=== PATIENT | female | born 1990 | race Caucasian/White ===

== ENCOUNTER 2017-12-04 11:36 | Inpatient (IN) | payer OTHER ==
[2017-12-04] MEDS ORDERED: SODIUM CHLORIDE 1,000 ML IV STA (13:27)
[2017-12-04] MEDS ORDERED: FOLIC ACID INJECTION - 1 MG, THIAMINE HCL 100 MG, MULTIVIT INJECTION ADULT 10 ML in SOD... IVPB ONE (13:32)
--- NOTE | 2017-12-04 13:32 | PDOC ---
History of Present Illness - General Chief Complaint: Lightheaded Stated Complaint: DIZZINESS, ELEVATED BP,ALCOHOL Time Seen by Provider: 12/04/17 13:15 History Source: Patient - History of Present Illness Timing/Duration: other (this am) Associated Symptoms: reports: chest pain, nausea/vomiting, weakness. denies: fever/chills, headaches, shortness of breath Past History - Past Medical History Allergies/Adverse Reactions: Allergies Allergy/AdvReac Type Severity Reaction Status Date / Time No Known Allergies Allergy Verified 12/04/17 11:40 Home Medications: Ambulatory Orders NK [No Known Home Medication] 12/04/17 COPD: No Hypercholesterolemia: Yes - Suicide/Smoking/Psychosocial Hx Smoking History: Never smoked Have you smoked in the past 12 months: No Information on smoking cessation initiated: No Hx Alcohol Use: Yes Drug/Substance Use Hx: No Substance Use Type: None Review of Systems - Review of Systems Constitutional: Yes: Malaise. No: Chills, Fever Respiratory: No: Shortness of Breath Cardiac (ROS): Yes: Chest Pain ABD/GI: Yes: Diarrhea, Nausea. No: Vomiting, Abdominal cramping *Physical Exam - Vital Signs Last Vital Signs Temp Pulse Resp BP Pulse Ox 98.7 F 110 H 18 138/87 100 12/04/17 11:41 12/04/17 11:41 12/04/17 11:41 12/04/17 11:41 12/04/17 11:41 - Physical Exam General Appearance: Yes: Appropriately Dressed. No: Apparent Distress HEENT: positive: Normal Voice Neck: positive: Supple Respiratory/Chest: positive: Lungs Clear, Normal Breath Sounds. negative: Respiratory Distress Cardiovascular: positive: S1, S2, Tachycardia Gastrointestinal/Abdominal: positive: Soft. negative: Tender Integumentary: positive: Dry, Warm Neurologic: positive: Fully Oriented, Alert, Normal Mood/Affect ED Treatment Course - LABORATORY CBC & Chemistry Diagram: 12/04/17 14:00 12/04/17 17:10 Medical Decision Making - Medical Decision Making 12/04/17 13:29 27-year-old female, no significant history here with generalized malaise, dizziness, nausea and vague chest pain that started at some point today while at work this am. Patient also reports 2 episodes of diarrhea, no abdominal pain , shortness of breath, fever or chills. Patient suspects that symptoms is secondary to excessive alcohol intake. States she stayed home yesterday and "drank rum all day" and did not have anything to eat. States she usually drinks socially but finds that lately she has been drinking more excessively due to multiple stressors. Denies SI/HI See exam Constellation of sxs suspected to be 2/2 excessive ETOH use yesterday Denies ETOH abuse but admits to using alcohol more frequently to cope w/ life stressors Tachy to 110 (??withdrawal), otherwise unremarkable exam -IVF -labs -will hold off on benzo for now 12/04/17 18:30 Labs unremarkable. Upon reevaluation, patient states she feels better but still feels "weird" and appears mildly anxious. Rpt HR 91. Upon further discussion, patient now admits that she has been drinking alcohol daily for a month and a half due to stressors. No SI, HI. Alcohol withdrawal now suspected. No tremors. Will give dose of ativan and discuss disposition with ED attending 12/04/17 18:51 Case discussed with ED attending, who states patient should be admitted or [place] [facility] [place] Had lengthy discussion with patient who declines inpatient detox at this time. Agrees with medical admission for now 12/04/17 19:13 Pt signed out to [facility] pending admission *DC/Admit/Observation/Transfer Diagnosis at time of Disposition: Alcohol withdrawal Qualifiers: Complication of substance-induced condition: uncomplicated Qualified Code(s): F10.230 - Alcohol dependence with withdrawal, uncomplicated - Referrals - Patient Instructions - Post Discharge Activity
[2017-12-04 14:31] LABS: BASO % 0.4 % (0-2.0); EOS % 0.2 % (0-4.5); HEMATOCRIT 38.6 % (32.4-45.2); HEMOGLOBIN 12.7 GM/dL (10.7-15.3); LYMPH % 15.7 % (8-40); MCH 28.4 pg (25.7-33.7); MCHC 32.8 g/dl (32.0-36.0); MEAN CELL VOLUME 86.4 fl (80-96); MEAN PLT VOLUME 8.2 fl (7.5-11.1); MONO % 5.1 % (3.8-10.2); NEUT % 78.6 % (42.8-82.8); PLATELET COUNT 298 K/MM3 (134-434); RBC 4.47 M/mm3 (3.60-5.2); RDW 14.8 % (11.6-15.6); WHITE BLOOD COUNT 10.4 K/mm3 (4.0-10.0)
--- NOTE | 2017-12-04 17:34 | EKG ---
Test Reason : Blood Pressure : / mmHG Vent. Rate : 090 BPM Atrial Rate : 090 BPM P-R Int : 136 ms QRS Dur : 074 ms QT Int : 364 ms P-R-T Axes : 023 042 013 degrees QTc Int : 445 ms NORMAL SINUS RHYTHM NORMAL ECG NO PREVIOUS ECGS AVAILABLE Confirmed by MD Maame, Kevin ([id number]) on 12/04/2017 5:34:20 PM Referred By: Confirmed By:Kevin Isabel MD
[2017-12-04 17:44] LABS: ALBUMIN 3.4 g/dl (3.4-5.0); ALK PHOS 102 U/L (45-117); ANION GAP 6 (8-16); BILIRUBIN,TOTAL 0.3 mg/dL (0.2-1.0); BLOOD UREA NITROGEN 5 mg/dL (7-18); CALCIUM 7.8 mg/dL (8.5-10.1); CHLORIDE 111 mmol/L (98-107); CO2 23 mmol/L (21-32); CREATININE 0.7 mg/dL (0.55-1.02); GLUCOSE,RANDOM 85 mg/dL (74-106); SGOT/AST 16 U/L (15-37); SGPT/ALT 15 U/L (12-78); SODIUM 140 mmol/L (136-145); TOT PROT 7.6 g/dl (6.4-8.2)
--- NOTE | 2017-12-04 19:35 | PN ---
Teaching Attending Note Name of Resident: Amina Pacheco ATTENDING PHYSICIAN STATEMENT I saw and evaluated the patient. I reviewed the resident's note and discussed the case with the resident. I agree with the resident's findings and plan as documented. SUBJECTIVE: Patient is a 27-year-old woman with chief complaint of generalized malaise, dizziness, nausea and vague chest pain for one day. Patient has been drinking a lot over the past two days and is under a lot of strees dealing with her mother who has schizophrenia. She denies suicidal or homicidal ideation. Has history of polysubstance abuse. OBJECTIVE: Alert and in no acute distress. Vital Signs Period Temp Pulse Resp BP Sys/Muniz Pulse Ox Last 24 Hr 98.7 F 110 18 138/87 100 HEENT: No Jaundice, eye redness or discharge, PERRLA, EOMI. Normocephalic, atraumatic. External ears are normal and hearing is grossly intact. No nasal discharge. Neck: Supple, nontender. No palpable adenopathy or thyromegaly. No JVD Chest: Good effort. Clear to auscultation and percussion. Heart: Regular. No S3, rub or murmur Abdomen: Not distended, soft, nontender and no HSM. No rebound or guarding. Normoactive bowel sounds. Ext: Peripheral pulses intact. No leg edema. Skin: Warm and dry. No petechiae, rash or ecchymosis. Neuro: Alert. Oriented x3. CN 2-12 grossly intact. Sensation grossly intact in all four extremities and DTR are symmetric. Psych: Mood is okay; affect is appropriate and insight is okay. Current Medications Generic Name Dose Route Start Last Admin Trade Name Freq PRN Reason Stop Dose Admin Folic Acid 1 mg/ Thiamine HCl 1,000 mls @ 125 mls/hr 12/04/17 13:32 12/04/17 14:00 100 mg/ Multivitamins/Minerals IVPB 12/04/17 21:31 125 mls/hr 10 ml/ Sodium Chloride ONCE ONE Administration Home Medications Medication Instructions Recorded NK [No Known Home Medication] 12/04/17 Laboratory Results - last 24 hr 12/04/17 12/04/17 12/04/17 14:00 14:00 14:00 WBC 10.4 H RBC 4.47 Hgb 12.7 Hct 38.6 MCV 86.4 MCH 28.4 MCHC 32.8 RDW 14.8 Plt Count 298 MPV 8.2 Neutrophils % 78.6 Lymphocytes % 15.7 Monocytes % 5.1 Eosinophils % 0.2 Basophils % 0.4 Nucleated RBC % 0 Sodium Cancelled Potassium Cancelled Chloride Cancelled Carbon Dioxide Cancelled Anion Gap Cancelled BUN Cancelled Creatinine Cancelled Creat Clearance w eGFR Cancelled Random Glucose Cancelled Calcium Cancelled Total Bilirubin Cancelled AST Cancelled ALT Cancelled Alkaline Phosphatase Cancelled Total Protein Cancelled Albumin Cancelled Lipase Cancelled Serum , Qual Negative 12/04/17 17:10 WBC RBC Hgb Hct MCV MCH MCHC RDW Plt Count MPV Neutrophils % Lymphocytes % Monocytes % Eosinophils % Basophils % Nucleated RBC % Sodium 140 Potassium 4.0 Chloride 111 H Carbon Dioxide 23 Anion Gap 6 L BUN 5 L Creatinine 0.7 Creat Clearance w eGFR > 60 Random Glucose 85 Calcium 7.8 L Total Bilirubin 0.3 AST 16 ALT 15 Alkaline Phosphatase 102 Total Protein 7.6 Albumin 3.4 Lipase Serum , Qual ASSESSMENT AND PLAN: 1. Alcohol withdrawal syndrome - Will admit as an observation case and monitor for alcohol withdrawal. Place on the [facility] librium protocol, IV banana bag, fall precautions, po thiamine, check alcohol level, magnesium and phosphate. Refer to alcohol detox upon discharge. 2. Depression - Psychiatry consult, especially in view of family history of mental illness. 3. DVT prophylaxis - Heparin 5000u sq tid 4. Advance directives - Full code
[2017-12-04] MEDS ORDERED: chlordiazePOXIDE HCL 25 MG CAPSULE PO ONE (19:49)
[2017-12-04] MEDS ORDERED: FOLIC ACID 1 MG TABLET (FP) PO ONE (19:50)
--- NOTE | 2017-12-04 19:52 | HP ---
CHIEF COMPLAINT: dizziness PCP: none HISTORY OF PRESENT ILLNESS: 27 yr old woman with polysubstance use(ETOH, cocaine, "pain pills," marijuana, cigarettes) presents to ED with 1 day of dizziness, lightheadedness, 2 episodes of nonbloody lose BMs and nausea since this morning. She seen by nurse at work who noted she appeared pale, with elevated blood pressure in the office and recommend she present to the ED for evaluation. She drank a bottle of rum, "medium sized" unable to quantify amount, last night with soda. Sunday she had 3 mixed vodka drinks at a bar with cigarettes and marijuana, Sunday she had 4 bottles of laurent. Dizziness and lightheadedness are unable to characterized, denies alleviating/ exacerbating factors. nausea has improved. She started drinking at the age of 14, for the last 1 month she increased frequency and amount of alcohol from 1-2 beers on the weekend, to nearly every night after work, about 2 beers a night to cope with additional stressors no previous hospitalizations/ED/ICU visits for ETOH/drug withdrawal/intoxication. at age of 25 recalls an incident when out with her brother and cousins at a club when she "had too much to drink and passed out" she vomited and was unconscious on the floor of the club. family were unable to arouse her but felt a pulse so took her home to recover. she does not recall the event. she woke up the next day without tremors/seizure-like activity. she snorted cocaine on weekends for one year, last use 6 months ago. smokes marijuana intermittently on weekends when available with friends. Has taken tanesha and other "pills" in the past, she takes "pain pills" occasionally, does not recall the name. Pt had been offered [facility] for detox but declined to be transferred. ER course was notable for: (1) thiamine/folic acid/MVI IVPB + 1L NS (2) (3) Recent Travel: none PAST MEDICAL HISTORY: HLD - was on statin the past but self-dc'd because she didn't want to mix the medication with her alcohol use PAST SURGICAL HISTORY: denies Social History: Smoking: intermittent cigarette use when drinking ETOH on weekends Alcohol: recent incr in frequency, last use sunday night Drugs: hx of snorting cocaine, smoking marijuana, "pain pills". denies current cocaine use. Family History: grandmother(maternal) with stroke at age 70's - hs of HTN and DM. paternal uncle with recent dx of colon cancer at age 50's. mother with schizophrenia Allergies No Known Allergies Allergy (Verified 12/04/17 11:40) HOME MEDICATIONS: Started taking "green tea" that she bought online for weight loss takes [employer] vitamins denies prescription medications Home Medications Medication Instructions Recorded NK [No Known Home Medication] 12/04/17 REVIEW OF SYSTEMS CONSTITUTIONAL: Absent: fever, chills, diaphoresis, generalized weakness, malaise, loss of appetite, weight change HEENT: Present: difficulty swallowing - had 2 episodes of choking on rice and a hot dog bun 2 months ago, went to the ED after the hot bun because himleck manuever was used on her, she was recommended to chew slowly and take small bites. no repeat episodes. Absent: rhinorrhea, nasal congestion, throat pain, throat swelling, mouth swelling, ear pain, eye pain, visual changes CARDIOVASCULAR: Present: lightheadedness Absent: chest pain, syncope, palpitations, irregular heart rate, peripheral edema RESPIRATORY: Absent: cough, shortness of breath, dyspnea with exertion, orthopnea, wheezing, stridor, hemoptysis GASTROINTESTINAL: Present: chronic RLQ pain that is intermittent for past 2 yrs lasting few secs at time and self-resolving- no associated/alleviating factors Absent: abdominal pain, abdominal distension, nausea, vomiting, diarrhea, constipation, melena, hematochezia GENITOURINARY: Present: nocturia Absent: dysuria, urgency, hesitancy, hematuria, flank pain, genital pain MUSCULOSKELETAL: Present: left neck pain for past week - no associated alleviating/exacerbating factors Absent: myalgia, arthralgia, joint swelling, back pain, neck pain SKIN: Absent: rash, itching, pallor HEMATOLOGIC/IMMUNOLOGIC: Absent: easy bleeding, easy bruising, lymphadenopathy, frequent infections ENDOCRINE: Present: heat intolerance, cold intolerance Absent: unexplained weight gain, unexplained weight loss, NEUROLOGIC: Present: headache, Absent:focal weakness or paresthesias, dizziness, unsteady gait, seizure, mental status changes, bladder or bowel incontinence PHYSICAL EXAMINATION Vital Signs - 24 hr 12/04/17 11:41 Temperature 98.7 F Pulse Rate 110 H Respiratory 18 Rate Blood Pressure 138/87 O2 Sat by Pulse 100 Oximetry (%) GENERAL: Awake, alert, and fully oriented, in no acute distress. HEAD: Normal with no signs of trauma. EYES: Pupils equal, round and reactive to light, extraocular movements intact, sclera anicteric, conjunctiva clear. No lid lag. EARS, NOSE, THROAT: oropharynx clear without exudates. Moist mucous membranes. NECK: Normal range of motion, supple without lymphadenopathy, JVD, or masses. no tenderness, no erythema LUNGS: Breath sounds equal, clear to auscultation bilaterally. No wheezes, and no crackles. No accessory muscle use. HEART: Regular rate and rhythm, normal S1 and S2 without murmur, rub or gallop. ABDOMEN: Soft, nontender, not distended, normoactive bowel sounds, no guarding, no rebound, no masses. No hepatomegaly or splenomegaly. MUSCULOSKELETAL: Normal range of motion at all joints. No bony deformities or tenderness. No CVA tenderness. UPPER EXTREMITIES: 2+ radial pulses, warm, well-perfused. No cyanosis. No clubbing. No peripheral edema. LOWER EXTREMITIES: 2+ DP pulses, warm, well-perfused. No calf tenderness. No peripheral edema. NEUROLOGICAL: Cranial nerves II-XII intact. Normal speech. facial symmetry. 5/ 5 handgrip, extension and flexion of biceps/tricep and shoulders. 5/5 hip extension. PSYCHIATRIC: Cooperative. Good eye contact. Appropriate mood and affect. SKIN: Warm, dry, normal turgor, no rashes or lesions noted, normal capillary refill. Laboratory Results - last 24 hr 12/04/17 12/04/17 12/04/17 14:00 14:00 14:00 WBC 10.4 H RBC 4.47 Hgb 12.7 Hct 38.6 MCV 86.4 MCH 28.4 MCHC 32.8 RDW 14.8 Plt Count 298 MPV 8.2 Neutrophils % 78.6 Lymphocytes % 15.7 Monocytes % 5.1 Eosinophils % 0.2 Basophils % 0.4 Nucleated RBC % 0 Sodium Cancelled Potassium Cancelled Chloride Cancelled Carbon Dioxide Cancelled Anion Gap Cancelled BUN Cancelled Creatinine Cancelled Creat Clearance w eGFR Cancelled Random Glucose Cancelled Calcium Cancelled Total Bilirubin Cancelled AST Cancelled ALT Cancelled Alkaline Phosphatase Cancelled Total Protein Cancelled Albumin Cancelled Lipase Cancelled Serum , Qual Negative 12/04/17 17:10 WBC RBC Hgb Hct MCV MCH MCHC RDW Plt Count MPV Neutrophils % Lymphocytes % Monocytes % Eosinophils % Basophils % Nucleated RBC % Sodium 140 Potassium 4.0 Chloride 111 H Carbon Dioxide 23 Anion Gap 6 L BUN 5 L Creatinine 0.7 Creat Clearance w eGFR > 60 Random Glucose 85 Calcium 7.8 L Total Bilirubin 0.3 AST 16 ALT 15 Alkaline Phosphatase 102 Total Protein 7.6 Albumin 3.4 Lipase Serum , Qual ASSESSMENT/PLAN: 27 yr old woman with HLD presents for dizziness after multiple days of ETOH use placed on obs for withdrawal. #symptoms likely from ETOH withdrawal - IVF, thiamine, folic acid - librium taper started - CIWA score of 5 - Dr. Fritz consulted for detox, Dr. Gooden for Psych consult for counseling - check urine tox, ETOH level - monitor blood pressure #smoking cessation - offered nicotine patch/gum, declined - offer cessation packet upon discharge #offered HIV testing, pt accepted #DVT prophylaxis - hep TID #diet: regular Visit type - Emergency Visit Emergency Visit: Yes ED Registration Date: 12/04/17 Care time: The patient presented to the Emergency Department on the above date and was hospitalized for further evaluation of their emergent condition. - New Patient This patient is new to me today: Yes Date on this admission: 12/04/17 - Critical Care Critical Care patient: No Hospitalist Screening - Colonoscopy Questionnaire Colonoscopy Questionnaire: Colonoscopy Questionnaire - Patient: 50 - 75 years old and never had a screening colonoscopy: Unknown History of colon or rectal polyps, or CA: Unknown History of IBD, Crohn's disease or UC: Unknown History of abdominal radiation therapy as a child: Unknown - Relative: 1 with colon or rectal CA, or polyps at age 60 or younger: Unknown Colon or rectal CA diagnosed at age 45 or younger: Unknown Multiple relatives with colon or rectal CA: Unknown - Outcome: Screening Result: Negative Screen
[2017-12-04] MEDS ORDERED: SODIUM CHLORIDE 1,000 ML IV SCH (20:15)
[2017-12-04] MEDS ORDERED: LORazepam 2 MG/ML SDV VIAL ONE (20:16)
[2017-12-04] MEDS ORDERED: FOLIC ACID 1 MG TABLET (FP) ONE (20:16)
[2017-12-04] MEDS ORDERED: chlordiazePOXIDE HCL 25 MG CAPSULE ONE (20:16)
--- NOTE | 2017-12-04 22:37 | CONSULT ---
Consult Detox [facility] Reason for Current Admission/Consult: substance use Referred by:: jonathan Pacheco - Alcohol/Substance Use Hx Alcohol Use: Yes Assessment Plan - Plan Plan: Chart, imagain labs reviewd. 27 yo f with PMHX polysubstance use and increasing alcohol use recently admitted for inpatient detox after refusing care at [facility]. Agree with plan of care and librium taper, fluids, vitamins, chck utox and regular vital signs to control BP and pulse. - Medication Detox Regimen/Protocol: Librium
[2017-12-04] MEDS: HEPARIN NA (PORCINE) 5,000 UNITS/ML 1ML VIAL SQ SCH (23:01)
[2017-12-05] MEDS ORDERED: HEPARIN NA (PORCINE) 5,000 UNITS/ML 1ML VIAL ONE ×2 (00:36→05:56)
[2017-12-05] MEDS: HEPARIN NA (PORCINE) 5,000 UNITS/ML 1ML VIAL SQ SCH ×3 (00:41→22:32)
[2017-12-05 02:54] LABS: MAGNESIUM 1.9 mg/dL (1.8-2.4); PHOSPHOROUS 3.5 mg/dL (2.5-4.9)
[2017-12-05 06:31] LABS: COCAINE, UR NEGATIVE ng/ml (CUTOFF=300); METHADONE, UR NEGATIVE ng/ml (CUTOFF=300); OPIATES, URI NEGATIVE ng/ml (CUTOFF=300); PHENCYCLIDINE,URINE NEGATIVE ng/ml (CUTOFF=25); URINE AMPHETAMINES NEGATIVE ng/ml (CUTOFF=500); URINE BARBITURATES NEGATIVE ng/ml (CUTOFF=200); URINE BENZODIAZEPINES NEGATIVE ng/ml (CUTOFF=200)
[2017-12-05 08:39] LABS: BASO % 0.7 % (0-2.0); EOS % 1.7 % (0-4.5); HEMATOCRIT 36.3 % (32.4-45.2); LYMPH % 32.1 % (8-40); MCH 28.6 pg (25.7-33.7); MEAN CELL VOLUME 86.6 fl (80-96); MONO % 6.7 % (3.8-10.2); NEUT % 58.8 % (42.8-82.8); PLATELET COUNT 270 K/MM3 (134-434); RBC 4.19 M/mm3 (3.60-5.2); RDW 14.9 % (11.6-15.6); WHITE BLOOD COUNT 8.8 K/mm3 (4.0-10.0)
[2017-12-05 09:03] LABS: CHLORIDE 108 mmol/L (98-107); POTASSIUM 3.7 mmol/L (3.5-5.1); SODIUM 138 mmol/L (136-145)
[2017-12-05 09:21] LABS: ANION GAP 8 (8-16); BLOOD UREA NITROGEN 4 mg/dL (7-18); CO2 22 mmol/L (21-32); CREATININE 0.7 mg/dL (0.55-1.02); GLUCOSE,RANDOM 83 mg/dL (74-106)
[2017-12-05] MEDS ORDERED: PRENATAL VITAMINS W/ FOLIC ACID TABLET (FP) PO SCH (10:00)
[2017-12-05] MEDS ORDERED: THIAMINE HCL 100 MG TABLET (FP) PO SCH ×2 (10:00→22:00)
[2017-12-05] MEDS ORDERED: chlordiazePOXIDE HCL 25 MG CAPSULE ONE (10:56)
--- NOTE | 2017-12-05 11:00 | PN ---
Progress Note (short form) - Note Progress Note: Subjective: The patient was seen at the bedside, she has a blanket over her head and is refusing to remove it Librium taper to start No beds available at [facility] Current Medications Generic Name Dose Route Start Last Admin Trade Name Freq PRN Reason Stop Dose Admin Chlordiazepoxide HCl 25 mg 12/04/17 19:49 Librium - PO 12/07/17 19:48 Q4H PRN WITHDRAWAL(CONT SUBST) Chlordiazepoxide HCl 50 mg 12/05/17 11:00 Librium - PO 12/06/17 05:01 [id number] EKTA Chlordiazepoxide HCl 25 mg 12/06/17 11:00 Librium - PO 12/07/17 05:01 [id number] EKTA Chlordiazepoxide HCl 15 mg 12/07/17 11:00 Librium - PO 12/08/17 05:01 [id number] EKTA Heparin Sodium (Porcine) 5,000 unit 12/04/17 22:00 12/05/17 06:11 Heparin - SQ 5,000 unit TID EKTA Administration Sodium Chloride 1,000 mls @ 100 mls/hr 12/04/17 20:15 12/04/17 20:25 Normal Saline - IV 100 mls/hr ASDIR EKTA Administration Multivit/Folic Acid/Iron 1 tab 12/05/17 10:00 Vitamins (Sjr) - PO DAILY EKTA Thiamine HCl 100 mg 12/05/17 10:00 Vitamin B1 - PO DAILY [facility] Objective: Vital Signs Period Temp Pulse Resp BP Sys/Muniz Pulse Ox Last 24 Hr 98.7 F 89-110 16-18 115-138/69-87 99-100 Physical Exam: General: NAD, A&Ox3 Refusing exam CBCD WBC 8.8 K/mm3 (4.0-10.0) 12/05/17 08:01 RBC 4.19 M/mm3 (3.60-5.2) 12/05/17 08:01 Hgb 12.0 GM/dL (10.7-15.3) 12/05/17 08:01 Hct 36.3 % (32.4-45.2) 12/05/17 08:01 MCV 86.6 fl (80-96) 12/05/17 08:01 MCHC 33.0 g/dl (32.0-36.0) 12/05/17 08:01 RDW 14.9 % (11.6-15.6) 12/05/17 08:01 Plt Count 270 K/MM3 (134-434) 12/05/17 08:01 MPV 8.0 fl (7.5-11.1) 12/05/17 08:01 CMP Sodium 138 mmol/L (136-145) 12/05/17 08:01 Potassium 3.7 mmol/L (3.5-5.1) 12/05/17 08:01 Chloride 108 mmol/L (98-107) H 12/05/17 08:01 Carbon Dioxide 22 mmol/L (21-32) 12/05/17 08:01 Anion Gap 8 (8-16) 12/05/17 08:01 BUN 4 mg/dL (7-18) L 12/05/17 08:01 Creatinine 0.7 mg/dL (0.55-1.02) 12/05/17 08:01 Creat Clearance w eGFR > 60 (>60) 12/04/17 17:10 Random Glucose 83 mg/dL (74-106) 12/05/17 08:01 Calcium 8.0 mg/dL (8.5-10.1) L 12/05/17 08:01 Total Bilirubin 0.3 mg/dL (0.2-1.0) 12/04/17 17:10 AST 16 U/L (15-37) 12/04/17 17:10 ALT 15 U/L (12-78) 12/04/17 17:10 Alkaline Phosphatase 102 U/L (45-117) 12/04/17 17:10 Total Protein 7.6 g/dl (6.4-8.2) 12/04/17 17:10 Albumin 3.4 g/dl (3.4-5.0) 12/04/17 17:10 Assessment: This is a 27 year old female with PMHx of polysubstance abuse who presented to the ED with lightheadedness, diarrhea, nausea. Plan: 1) Acute alcohol withdrawal - Start Librium taper - Continue Thiamine - Continue Folic Acid - Continue multivitamin - For transfer to [facility] detox once a bed becomes available - Appreciate detox consult 2) F/E/N - Regular diet - Monitor electrolytes 3) Prophylaxis: - Heparin 5,000u sq tid - OOB ambulating 4) Dispo: - Requires continued inpatient care CODE STATUS: FULL CODE Visit type - Emergency Visit Emergency Visit: Yes ED Registration Date: 12/04/17 Care time: The patient presented to the Emergency Department on the above date and was hospitalized for further evaluation of their emergent condition. - New Patient This patient is new to me today: Yes Date on this admission: 12/05/17 - Critical Care Critical Care patient: No
[2017-12-05] MEDS: chlordiazePOXIDE HCL 25 MG CAPSULE PO PRN (11:10)
[2017-12-05] MEDS: chlordiazePOXIDE HCL 25 MG CAPSULE PO SCH ×3 (11:11→22:29)
[2017-12-05 17:46] VITALS: BMI 32.5
--- NOTE | 2017-12-05 18:33 | CON.PSY ---
Psychiatry Consult Chief Complaint: I dont have any Psych problems. I drink. - Previous Psychiatric Treatment Outpatient: None Inpatient: None - Previous Substance Abuse Treatment Outpatient: None Inpatient: None - Reason for Previous Treatment Reason for Previous Treatment: Alcohol Abuse, Cocaine - Current Medications Current Medications: Active Medications Chlordiazepoxide HCl (Librium -) 25 mg PO Q4H PRN PRN Reason: WITHDRAWAL(CONT SUBST) Stop: 12/07/17 19:48 Last Admin: 12/05/17 11:10 Dose: 25 mg Chlordiazepoxide HCl (Librium -) 50 mg PO [id number] [facility] Stop: 12/06/17 05:01 Last Admin: 12/05/17 17:15 Dose: 25 mg Chlordiazepoxide HCl (Librium -) 25 mg PO [id number] [facility] Stop: 12/07/17 05:01 Chlordiazepoxide HCl (Librium -) 15 mg PO [id number] [facility] Stop: 12/08/17 05:01 Heparin Sodium (Porcine) (Heparin -) 5,000 unit SQ TID [facility] Last Admin: 12/05/17 06:11 Dose: 5,000 unit Multivit/Folic Acid/Iron ( Vitamins (Sjr) -) 1 tab PO DAILY EKTA Thiamine HCl (Vitamin B1 -) 100 mg PO DAILY EKTA - Allergies Allergies: Allergies Allergy/AdvReac Type Severity Reaction Status Date / Time No Known Allergies Allergy Verified 12/04/17 11:40 - Current Living Status Usual Living Arrangement: With Parent - Current Mental Status Evaluation Appearance: Well Groomed Attitude: Cooperative - Affect Affect: Full Range Appropriateness: Appropriate to Content - Mood Mood: Euthymic - Speech/Language Expressive: Coherent - Psychomotor Activity Psychomotor Activity: Normal - Thought Process Thought Process: Intact - Thought Content Hallucinations: Absent Delusions: Absent - Self Perception Self Perception: No Impairment - Cognition Attention: Alert Orientation: Time Memory, Immediate Recall: Intact Memory, Short Term: 3/3 Memory, Remote with Promptin/3 - Concentration Serial Sevens Intact: Yes Simple Calculations Intact: Yes - Abstraction Proverb Interpretation: Intact Judgement: Intact - Insight Insight: Intact - Impulse Control Impulse Control: Minimally Impaired - Suicidal Ideation Suicidal Ideation: No - Homicidal Ideation Homicidal Ideation: No Assessment/Plan 1) Patient is not vdepressed or suicidal at this time. No Psych meds at5 this time.
[2017-12-05] MEDS ORDERED: chlordiazePOXIDE HCL 25 MG CAPSULE PO SCH (23:00)
[2017-12-06] MEDS: chlordiazePOXIDE HCL 25 MG CAPSULE PO SCH (06:10)
[2017-12-06] MEDS: HEPARIN NA (PORCINE) 5,000 UNITS/ML 1ML VIAL SQ SCH (06:10)
[2017-12-06] MEDS: chlordiazePOXIDE HCL 25 MG CAPSULE PO PRN (06:10)
[2017-12-06 09:26] VITALS: BP 127/63; PULSE 97; TEMP 98.4
--- NOTE | 2017-12-06 09:36 | DS ---
Physical Examination Vital Signs: Vital Signs Temperature 98.4 F 12/06/17 09:00 Pulse Rate 97 H 12/06/17 09:00 Respiratory Rate 20 12/06/17 09:00 Blood Pressure 127/63 12/06/17 09:00 O2 Sat by Pulse Oximetry (%) 99 12/05/17 21:00 Labs: CBC, BMP 12/05/17 08:01 12/05/17 08:01 Discharge Summary Reason For Visit: ALCOHOL WITHDRAWAL SYNDROME Current Active Problems Alcohol withdrawal (Acute) Condition: Stable - Instructions Diet, Activity, Other Instructions: Please return to the ED with new, persistent, or worsening symptoms. Please follow-up with your primary care provider as indicated. You are being transferred to [facility] to complete your detox. Referrals: Tristin Baltazar MD [Staff Physician] - (Please follow-up with your primary care provider within 1 week.) Efra Fritz MD [Staff Physician] - Disposition: TRANSFER ACUTE CARE/OTHER HOSP - Home Medications Comprehensive Discharge Medication List: Ambulatory Orders Folic Acid 1 mg PO DAILY #30 tablet 12/06/17 Vitamins (Sjr) - 1 tab PO DAILY tablet 12/06/17 Thiamine HCl [Vitamin B1 -] 100 mg PO DAILY tablet 12/06/17
[2017-12-06] MEDS ORDERED: PT OWN MED DRAWER 7, Y5N ONE (09:43)
[2017-12-06] MEDS ORDERED: FOLIC ACID 1 MG TABLET (FP) PO SCH (10:00)
[2017-12-06] MEDS ORDERED: chlordiazePOXIDE HCL 25 MG CAPSULE PO SCH (11:00)
[2017-12-06] MEDS ORDERED: chlordiazePOXIDE 5 MG CAPSULE PO SCH (23:00)
[2017-12-07] MEDS ORDERED: chlordiazePOXIDE 5 MG CAPSULE PO SCH (11:00)
== END 2017-12-06 13:24 | disposition short-term general hospital (02) | DRG 775 ==
LOC: JER 11:36 → JERBED 19:54 → J6S 12-05 14:23
PROVIDERS: ADMIT Internal Medicine; ATTEND Registered Nurse
PROC: HZ2ZZZZ Detoxification Services for Substance Abuse Treatment (ICD-10-PCS; principal; 2017-12-04)
DX: F10.230 Alcohol dependence with withdrawal, uncomplicated (principal); F32.9 Major depressive disorder, single episode, unspecified; F12.10 Cannabis abuse, uncomplicated; Y90.0 Blood alcohol level of less than 20 mg/100 ml; E78.5 Hyperlipidemia, unspecified; R63.5 Abnormal weight gain; Z68.32 Body mass index [BMI] 32.0-32.9, adult
CPT/HCPCS: 36415; 80048; 80053; 80307; 83735; 84100; 84443; 84703; 85025; 87389; 93005; 93010; 99284-25; J1644; J7030

== ENCOUNTER 2017-12-06 14:04 | Inpatient (IN) | payer OTHER ==
[2017-12-06 17:54] VITALS: BMI 33.2
--- NOTE | 2017-12-06 19:01 | HP ---
CIWA Score - CIWA Score Nausea/Vomitin Muscle Tremors: 1-None Visible, but [place] Anxiety: 2 Agitation: 0-Normal Activity Paroxysmal Sweats: 1-Minimal Palms Moist Orientation: 0-Oriented Tacttile Disturbances: 0-None Auditory Disturbances: 0-None Visual Disturbances: 0-None Headache: 2-Mild CIWA-Ar Total Score: 8 Admission ROS BHS - HPI Chief Complaint: alcohol withdrawal symptoms Allergies/Adverse Reactions: Allergies Allergy/AdvReac Type Severity Reaction Status Date / Time No Known Allergies Allergy Verified 12/04/17 11:40 History of Present Illness: 27 yo female with hx of alcohol dependence was transferred from [facility] after admission there from 12/04/17 - 12/06/17 to continue alcohol detox. PMHX: HTN, hyperlipidemia, denies any psychiatric history. Reports no prior detox. Reports started drinking this year and increase alcohol consumption to feel better. Rapports hx of blackouts, last episode two years ago. Denies suicidal / homicidal ideation. Exam Limitations: No Limitations - Ebola screening Have you traveled outside of the country in the last 21 days: No Have you had contact with anyone from an Ebola affected area: No Have you been sick,other than usual withdrawal symptoms: No Do you have a fever: No - Review of Systems Constitutional: Changes in sleep EENT: reports: Other (wears glasses, reports blurry vision when blood sugar is low) Respiratory: reports: No Symptoms reported Cardiac: reports: Other (hx of chest pain, with last episode two days ago while in the ER) GI: reports: No Symptoms Reported : reports: No Symptoms Reported Musculoskeletal: reports: No Symptoms Reported Neuro: reports: Headache, Weakness Endocrine: reports: Increased Thirst Hematology: reports: No Symptoms Reported Psychiatric: reports: Orientated x3 Other Systems: Reviewed and Negative Patient History - Patient Medical History Hx Anemia: No Hx Asthma: No Hx Chronic Obstructive Pulmonary Disease (COPD): No Hx Cancer: No Hx Cardiac Disorders: No Hx Congestive Heart Failure: No Hx Hypertension: Yes Hx Hypercholesterolemia: Yes Hx Pacemaker: No HX Cerebrovascular Accident: No Hx Seizures: No Hx Dementia: No Hx Diabetes: No Hx Gastrointestinal Disorders: No Hx Liver Disease: No Hx Genitourinary Disorders: No Hx Sexually Transmitted Disorders: No Hx Renal Disease (ESRD): No Hx Thyroid Disease: No Hx Human Immunodeficiency Virus (HIV): No (last negative, declines testing ) Hx Hepatitis C: No Hx Depression: No Hx Suicide Attempt: No Hx Bipolar Disorder: No Hx Schizophrenia: No - Patient Surgical History Past Surgical History: No Hx Neurologic Surgery: No Hx Cataract Extraction: No Hx Cardiac Surgery: No Hx Lung Surgery: No Hx Breast Surgery: No Hx Breast Biopsy: No Hx Abdominal Surgery: No Hx Appendectomy: No Hx Cholecystectomy: No Hx Genitourinary Surgery: No Hx Section: No Hx Orthopedic Surgery: No Anesthesia Reaction: No - PPD History Previous Implant?: Yes Documented Results: Negative w/o proof PPD to be Administered?: Yes - Reproductive History Patient is a Female of Child Bearing Age (11 -55 yrs old): Yes Last Menstrual Period: 12/02/17 Patient : No - Smoking Cessation Smoking history: Current some day smoker Have you smoked in the past 12 months: Yes Aproximately how many cigarettes per day: 2 Hx Chewing Tobacco Use: No Initiated information on smoking cessation: Yes 'Breaking Loose' booklet given: 12/06/17 - Substance & Tx. History Hx Alcohol Use: Yes Hx Substance Use: Yes Substance Use Type: Alcohol Hx Substance Use Treatment: No - Substances Abused Alcohol Route: Oral Frequency: 3-6 times per week Amount used: 1-2 CUPS VODKA/HENESSEY Age of first use: 14 Date of Last Use: 12/03/17 Family Disease History - Family Disease History Family Disease History: Other: Father (alive, lung disease, HTN), Mother (alive , schizophernia, depression and anxiety ) Admission Physical Exam BHS - Vital Signs Vital Signs: Vital Signs - 24 hr 12/06/17 17:51 Temperature 98.5 F Pulse Rate 87 Respiratory 20 Rate Blood Pressure 115/69 - Physical General Appearance: Yes: Nourished, Appropriately Dressed, Obese, Anxious HEENTM: Yes: EOMI, Hearing grossly Normal, Normal ENT Inspection, Normocephalic , Normal Voice, NAVIN, Pharynx Normal, Tm's normal Respiratory: Yes: Chest Non-Tender, Lungs Clear, Normal Breath Sounds, No Respiratory Distress, No Accessory Muscle Use Neck: Yes: No masses,lesions,Nodules, Trachea in good position Breast: Yes: Breast Exam Deferred Cardiology: Yes: Regular Rhythm, Regular Rate Abdominal: Yes: Normal Bowel Sounds, Non Tender, Flat, Soft Genitourinary: Yes: Within Normal Limits Back: Yes: Normal Inspection Musculoskeletal: Yes: full range of Motion, Gait Steady, Pelvis Stable Extremities: Yes: Normal Capillary Refill, Normal Inspection, Normal Range of Motion, Non-Tender Neurological: Yes: watch repairer II-XII NML intact, Fully Oriented, Alert, Motor Strength 5/5, Depressed Affect Integumentary: Yes: Normal Color, Warm, Moist Lymphatic: Yes: Within Normal Limits - Diagnostic (1) Hypertension Current Visit: Yes Status: Chronic Qualifiers: Hypertension type: essential hypertension Qualified Code(s): I10 - Essential (primary) hypertension Comment: reports currrenlty not on medications (2) Hyperlipidemia Current Visit: Yes Status: Acute Qualifiers: Hyperlipidemia type: unspecified Qualified Code(s): E78.5 - Hyperlipidemia , unspecified (3) Alcohol withdrawal Current Visit: Yes Status: Acute Qualifiers: Complication of substance-induced condition: uncomplicated Qualified Code(s ): F10.230 - Alcohol dependence with withdrawal, uncomplicated Cleared for Admission [facility] - Detox or Rehab [facility] Level of Care: Medically Supervised Detox Regimen/Protocol: Librium [facility] Breath Alcohol Content Breath Alcohol Content: 0 Urine Pregancy Test - Result Urine Test Results: Negative- NO Line Present Urine Drug Screen - Results Drug Screen Negative: No Urine Drug Screen Results: BZO-Benzodiazepines
[2017-12-06] MEDS ORDERED: IBUPROFEN 400 MG TABLET (FP) PO PRN (19:20)
[2017-12-06] MEDS ORDERED: MAGNESIUM HYDROX 2400MG/30ML ORAL SUSPENSION 30 ML CUP PO PRN (19:20)
[2017-12-06] MEDS ORDERED: ACETAMINOPHEN 325 MG TABLET (FP) PO PRN (19:20)
[2017-12-06] MEDS ORDERED: MAG HYDROX/AL HYDROX/SIMETH 30 ML UNIT-DOSE CUP PO PRN (19:20)
[2017-12-06] MEDS ORDERED: hydrOXYzine PAMOATE 25 MG CAPSULE (FP) PO PRN (19:20)
[2017-12-06] MEDS ORDERED: LOPERAMIDE HCL 2 MG CAPSULE PO PRN (19:20)
[2017-12-06] MEDS ORDERED: MAGNESIUM CITRATE 300 ML BOTTLE PO PRN (19:20)
[2017-12-06] MEDS ORDERED: MENTHOL/PHENOL 1 EACH UD MM PRN (19:20)
[2017-12-06] MEDS ORDERED: P-EPHED 60MG/TRIPROLIDI 2.5MG TABLET PO PRN (19:20)
[2017-12-06] MEDS ORDERED: guaiFENesin/D-METHORPHAN HB 10 ML UNIT-DOSE CUPS PO PRN (19:20)
[2017-12-06] MEDS ORDERED: chlordiazePOXIDE HCL 25 MG CAPSULE PO ONE (19:45)
[2017-12-06] MEDS ORDERED: MELATONIN 5 MG TABLETS PO PRN (22:00)
[2017-12-06] MEDS: THIAMINE HCL 100 MG TABLET (FP) PO SCH (23:54)
--- NOTE | 2017-12-07 09:03 | CONSULT ---
[facility] Psychiatric Consult - Data Date of interview: 12/07/17 Admission source: [facility] Identifying data: Patient is a 27 year old single female, without kids, employed as a teacher aid, and currently living with her mother. This is patient 's first admission to [facility] detox. Pt. admitted to for alcohol dependence. Substance Abuse History: - Smoking Cessation. Smoking history: Current some day smoker. Have you smoked in the past 12 months: Yes. Aproximately how many cigarettes per day: 2. Hx Chewing Tobacco Use: No. Initiated information on smoking cessation: Yes. 'Breaking Loose' booklet given: 12/06/17. - Substance & Tx. History. Hx Alcohol Use: Yes. Hx Substance Use: Yes. Substance Use Type : Alcohol. Hx Substance Use Treatment: No. - Substances Abused. Alcohol. Route: Oral. Frequency: 3-6 times per week. Amount used: 1-2 CUPS VODKA/ HENESSEY. Age of first use: 14. Date of Last Use: 12/03/17 Medical History: Denies. Psychiatric History: Patient denies h/o psychiatric hospitalizations, outpatient care, and suicide attempt. Physical/Sexual Abuse/Trauma History: Denies. Mental Status Exam - Mental Status Exam Alert and Oriented to: Time, Place, Person Cognitive Function: Good Patient Appearance: Well Groomed Mood: Hopeful Affect: Mood Congruent Patient Behavior: Appropriate, Cooperative Speech Pattern: Appropriate Voice Loudness: Normal Thought Process: Intact, Goal Oriented Thought Disorder: Not Present Hallucinations: Denies Suicidal Ideation: Denies Homicidal Ideation: Denies Insight/Judgement: Poor Sleep: Fair Appetite: Fair Muscle strength/Tone: Normal Gait/Station: Normal Psychiatric Findings - Problem List ([place] 1, 2,3) (1) Alcohol withdrawal Current Visit: Yes Status: Acute Qualifiers: Complication of substance-induced condition: uncomplicated Qualified Code(s ): F10.230 - Alcohol dependence with withdrawal, uncomplicated - Initial Treatment Plan Initial Treatment Plan: Psychoeducation provided. Detoxification provided. Observation.
[2017-12-07 10:00] LABS: HEMATOCRIT 38.2 % (32.4-45.2); HEMOGLOBIN 12.5 GM/dL (10.7-15.3); MCH 28.5 pg (25.7-33.7); MCHC 32.6 g/dl (32.0-36.0); MEAN CELL VOLUME 87.2 fl (80-96); MEAN PLT VOLUME 8.1 fl (7.5-11.1); PLATELET COUNT 265 K/MM3 (134-434); RBC 4.38 M/mm3 (3.60-5.2); WHITE BLOOD COUNT 9.6 K/mm3 (4.0-10.0)
[2017-12-07] MEDS ORDERED: PRENATAL VITAMINS W/ FOLIC ACID TABLET (FP) PO SCH (10:00)
--- NOTE | 2017-12-07 10:02 | PN ---
S Progress Note (SOAP) Subjective: 27 years old female admitted on 12/04/17 to medical unit for alcohol intoxification released on 12/06/17 to patient wellness center continue alcohol detox patient is doing well on the detox unit reported feeling better Objective: 12/07/17 10:15 Vital Signs Temperature 98.2 F 12/07/17 09:15 Pulse Rate 97 H 12/07/17 09:15 Respiratory Rate 17 12/07/17 09:15 Blood Pressure 127/71 12/07/17 09:15 O2 Sat by Pulse Oximetry (%) Laboratory Last Values WBC 9.6 K/mm3 (4.0-10.0) 12/07/17 07:30 RBC 4.38 M/mm3 (3.60-5.2) 12/07/17 07:30 Hgb 12.5 GM/dL (10.7-15.3) 12/07/17 07:30 Hct 38.2 % (32.4-45.2) 12/07/17 07:30 MCV 87.2 fl (80-96) 12/07/17 07:30 MCH 28.5 pg (25.7-33.7) 12/07/17 07:30 MCHC 32.6 g/dl (32.0-36.0) 12/07/17 07:30 RDW 15.0 % (11.6-15.6) 12/07/17 07:30 Plt Count 265 K/MM3 (134-434) 12/07/17 07:30 MPV 8.1 fl (7.5-11.1) 12/07/17 07:30 lab noted Assessment: 12/07/17 10:15 mild alcohol withdrawal sx Plan: medically supervised detox
[2017-12-07] MEDS: chlordiazePOXIDE 5 MG CAPSULE PO SCH ×3 (10:11→22:24)
--- NOTE | 2017-12-07 10:21 | EKG ---
Test Reason : Blood Pressure : / mmHG Vent. Rate : 082 BPM Atrial Rate : 082 BPM P-R Int : 126 ms QRS Dur : 074 ms QT Int : 368 ms P-R-T Axes : 036 037 018 degrees QTc Int : 429 ms NORMAL SINUS RHYTHM NORMAL ECG WHEN COMPARED WITH ECG OF 04-DEC-2017 14:36, NO SIGNIFICANT CHANGE WAS FOUND Confirmed by YOHANA FRAZIER MD ([id number]) on 12/07/2017 10:20:53 AM Referred By: Confirmed By:YOHANA FRAZIER MD
[2017-12-07 10:25] LABS: ALBUMIN 3.4 g/dl (3.4-5.0); ANION GAP 5 (8-16); BILIRUBIN,TOTAL 0.2 mg/dL (0.2-1.0); BLOOD UREA NITROGEN 13 mg/dL (7-18); CALCIUM 8.5 mg/dL (8.5-10.1); CHLORIDE 107 mmol/L (98-107); CO2 28 mmol/L (21-32); CREATININE 0.8 mg/dL (0.55-1.02); GLUCOSE,RANDOM 93 mg/dL (74-106); POTASSIUM 4.3 mmol/L (3.5-5.1); SGOT/AST 12 U/L (15-37); SODIUM 140 mmol/L (136-145); TOT PROT 7.4 g/dl (6.4-8.2)
[2017-12-07 10:47] LABS: ALK PHOS 95 U/L (45-117); SGPT/ALT 19 U/L (12-78)
[2017-12-07 17:12] LABS: URINE APPEARANCE CLOUDY; URINE BILIRUBIN NEGATIVE (<2.0 mg/dL); URINE COLOR YELLOW; URINE GLUCOSE (UA) NEGATIVE (NEGATIVE); URINE KETONE NEGATIVE (NEGATIVE); URINE NITRITE NEGATIVE (NEGATIVE); URINE PROTEIN NEGATIVE (NEGATIVE); URINE UROBILINOGEN NEGATIVE mg/dL (0.2-1.0)
[2017-12-07 17:29] LABS: URINE LEUK ESTERASE 1+ (NEGATIVE)
[2017-12-07 17:33] LABS: EPI CELLS MODERATE /HPF (FEW); URINE MUCUS RARE
[2017-12-07] MEDS: THIAMINE HCL 100 MG TABLET (FP) PO SCH (22:24)
[2017-12-07] MEDS ORDERED: chlordiazePOXIDE 5 MG CAPSULE PO SCH (23:00)
[2017-12-08] MEDS: chlordiazePOXIDE 5 MG CAPSULE PO SCH (05:19)
[2017-12-08 06:23] VITALS: BP 112/67; PULSE 84; TEMP 97.3
--- NOTE | 2017-12-08 09:12 | DS ---
[facility] Detox Discharge Summary Admission Date: 12/06/17 Discharge Date: 12/08/17 - History Additional Comments: Patient to follow up with PMD upon discharge. Pertinent Past History: Vital Signs Temperature 97.3 F L 12/08/17 06:00 Pulse Rate 84 12/08/17 06:00 Respiratory Rate 18 12/08/17 06:00 Blood Pressure 112/67 12/08/17 06:00 O2 Sat by Pulse Oximetry (%) Laboratory Last Values WBC 9.6 K/mm3 (4.0-10.0) 12/07/17 07:30 RBC 4.38 M/mm3 (3.60-5.2) 12/07/17 07:30 Hgb 12.5 GM/dL (10.7-15.3) 12/07/17 07:30 Hct 38.2 % (32.4-45.2) 12/07/17 07:30 MCV 87.2 fl (80-96) 12/07/17 07:30 MCH 28.5 pg (25.7-33.7) 12/07/17 07:30 MCHC 32.6 g/dl (32.0-36.0) 12/07/17 07:30 RDW 15.0 % (11.6-15.6) 12/07/17 07:30 Plt Count 265 K/MM3 (134-434) 12/07/17 07:30 MPV 8.1 fl (7.5-11.1) 12/07/17 07:30 Sodium 140 mmol/L (136-145) 12/07/17 07:30 Potassium 4.3 mmol/L (3.5-5.1) 12/07/17 07:30 Chloride 107 mmol/L (98-107) 12/07/17 07:30 Carbon Dioxide 28 mmol/L (21-32) 12/07/17 07:30 Anion Gap 5 (8-16) L 12/07/17 07:30 BUN 13 mg/dL (7-18) 12/07/17 07:30 Creatinine 0.8 mg/dL (0.55-1.02) 12/07/17 07:30 Creat Clearance w eGFR > 60 (>60) 12/07/17 07:30 Random Glucose 93 mg/dL (74-106) 12/07/17 07:30 Calcium 8.5 mg/dL (8.5-10.1) 12/07/17 07:30 Total Bilirubin 0.2 mg/dL (0.2-1.0) D 12/07/17 07:30 AST 12 U/L (15-37) L 12/07/17 07:30 ALT 19 U/L (12-78) 12/07/17 07:30 Alkaline Phosphatase 95 U/L (45-117) 12/07/17 07:30 Total Protein 7.4 g/dl (6.4-8.2) 12/07/17 07:30 Albumin 3.4 g/dl (3.4-5.0) 12/07/17 07:30 Urine Color Yellow 12/07/17 13:50 Urine Appearance Cloudy 12/07/17 13:50 Urine pH 6.0 (5.0-8.0) 12/07/17 13:50 Ur Specific [place] 1.019 (1.001-1.035) 12/07/17 13:50 Urine Protein Negative (NEGATIVE) 12/07/17 13:50 Urine Glucose (UA) Negative (NEGATIVE) 12/07/17 13:50 Urine Ketones Negative (NEGATIVE) 12/07/17 13:50 Urine Blood Negative (NEGATIVE) 12/07/17 13:50 Urine Nitrite Negative (NEGATIVE) 12/07/17 13:50 Urine Bilirubin Negative (<2.0 mg/dL) 12/07/17 13:50 Urine Urobilinogen Negative mg/dL (0.2-1.0) 12/07/17 13:50 Ur Leukocyte Esterase 1+ (NEGATIVE) H 12/07/17 13:50 Urine WBC (Auto) 5 /hpf (3-5) 12/07/17 13:50 Urine RBC (Auto) 2 /hpf (0-3) 12/07/17 13:50 Ur Epithelial Cells Moderate /HPF (FEW) 12/07/17 13:50 Urine Mucus Rare 12/07/17 13:50 RPR Titer Nonreactive (NONREACTIVE) 12/07/17 07:30 - Physical Exam Results Vital Signs: Vital Signs Temperature 97.3 F L 12/08/17 06:00 Pulse Rate 84 12/08/17 06:00 Respiratory Rate 18 12/08/17 06:00 Blood Pressure 112/67 12/08/17 06:00 O2 Sat by Pulse Oximetry (%) - Treatment Hospital Course: Detox Protocol Followed - Medication Discharge Medications: Ambulatory Orders Folic Acid 1 mg PO DAILY #30 tablet 12/06/17 Vitamins (Sjr) - 1 tab PO DAILY tablet 12/06/17 Thiamine HCl [Vitamin B1 -] 100 mg PO DAILY tablet 12/06/17 - Diagnosis (1) Hypertension Current Visit: Yes Status: Chronic Qualifiers: Hypertension type: essential hypertension Qualified Code(s): I10 - Essential (primary) hypertension (2) Hyperlipidemia Current Visit: Yes Status: Acute Qualifiers: Hyperlipidemia type: unspecified Qualified Code(s): E78.5 - Hyperlipidemia , unspecified (3) Alcohol withdrawal Current Visit: Yes Status: Acute Qualifiers: Complication of substance-induced condition: uncomplicated Qualified Code(s ): F10.230 - Alcohol dependence with withdrawal, uncomplicated - AMA Did Patient Leave Against Medical Advice: No (12 step meetings info in her area. [facility])
[2017-12-08] MEDS ORDERED: chlordiazePOXIDE HCL 10 MG CAPSULE PO SCH ×2 (11:00→23:00)
== END 2017-12-08 09:27 | disposition home or self-care (01) | DRG 775 ==
LOC: YASAS 14:04 → Y6N 19:23
PROVIDERS: ADMIT Surgery; ATTEND Surgery
PROC: HZ2ZZZZ Detoxification Services for Substance Abuse Treatment (ICD-10-PCS; principal; 2017-12-06)
DX: F10.230 Alcohol dependence with withdrawal, uncomplicated (principal); I10 Essential (primary) hypertension; E78.5 Hyperlipidemia, unspecified
CPT/HCPCS: 36415; 80053; 81003; 81015; 85027; 86593; 93005; 93010